=== PATIENT | female | born 1985 | race Caucasian/White ===

== ENCOUNTER 2016-12-23 10:16 | Emergency (ER) | payer MEDICAID ==
--- NOTE | 2016-12-23 10:52 | EDM.PDOC ---
ED HPI Skin/Rash - General Chief Complaint: Skin Complaint Stated Complaint: SPIDER BITE ON CHEST Time Seen by Provider: 12/23/16 10:37 Source: Reports: Patient History Limitations: Reports: No limitations - History of Present Illness INITIAL COMMENTS - FREE TEXT/NARRATIVE: The patient presents with a "spider bite" to her left chest. She noticed this a few days ago. She has no fever or chills. She has no drainage. She did not see the spider but she is concerned it may have happened. Timing: Reports: still present Location, Skin: Reports: chest (Left lateral breast) Quality: Reports: Sharp Severity: mild Associated Symptoms: Reports: no other symptoms Treatments OPERATIONS DISPATCHER: Reports: Other (see below) Other Treatments OPERATIONS DISPATCHER: home remedies - Related Data Allergies Allergy/AdvReac Type Severity Reaction Status Date / Time acetaminophen [From Vicodin] Allergy Airway Verified 12/23/16 10:37 Tightness banana Allergy Airway Verified 12/23/16 10:37 Tightness hydrocodone [From Vicodin] Allergy Airway Verified 12/23/16 10:37 Tightness latex Allergy Hives Verified 12/23/16 10:37 morphine Allergy Hives Verified 12/23/16 10:37 strawberry Allergy Airway Verified 12/23/16 10:37 Tightness Home Meds: Ambulatory Orders Medication Instructions Recorded Confirmed Doxycycline [Vibramycin] 100 mg PO Q12HR #20 cap 12/23/16 Past Medical History Respiratory History: Reports: Asthma Psychiatric History: Reports: ADHD, Bipolar, Learning disability - Past Surgical History Female Surgical History: Reports: section, Tubal ligation Social & Family History - Tobacco Use Smoking Status *Q: Never Smoker - Caffeine Use Caffeine Use: Reports: Coffee, Soda, Tea - Recreational Drug Use Recreational Drug Use: No ED ROS GENERAL - Review of Systems Review Of Systems: See Below Constitutional: Reports: no symptoms HEENT: Reports: No symptoms Respiratory: Reports: no symptoms Cardiovascular: Reports: No symptoms Endocrine: Reports: no symptoms GI/Abdominal: Reports: No symptoms : Reports: no symptoms Musculoskeletal: Reports: no symptoms Skin: Reports: other (cellulitis to the left lateral breast) ED EXAM, SKIN/RASH Exam: See Below Exam Limited By: No limitations General Appearance: alert, no apparent distress Ears: normal external exam Nose: normal inspection Head: atraumatic, normocephalic Respiratory/Chest: no respiratory distress Skin: Other (erythema and mild edema with pain upon palpation to an area to the left lateral breast. No drainage noted.) Course - Vital Signs Last Recorded V/S: Last Vital Signs Temp 98.0 F 12/23/16 10:41 Pulse 53 L 12/23/16 10:41 Resp 20 12/23/16 10:41 BP 115/74 12/23/16 10:41 Pulse Ox 100 12/23/16 10:41 Departure - Departure Time of Disposition: 10:55 Disposition: Home, Self-Care 01 Condition: good Clinical Impression: Cellulitis Qualifiers: Site of cellulitis: trunk Site of cellulitis of trunk: chest wall Qualified Code(s): L03.313 - Cellulitis of chest wall Prescriptions: Doxycycline [Vibramycin] 100 mg PO Q12HR #20 cap Referrals: Gela Rushing PA-C [Physician [employer]] - 1 Week Forms: ED Department Discharge Additional Instructions: Take the doxycycline 2 times per day for 10 days. Put a warm compress on the wound 2 to 3 times per day for 5 days. Please return if you are worse. Follow up with Gela Rushing in 1 week.
== END 2016-12-23 11:05 | disposition home or self-care (01) ==
LOC: JD.ED 10:16
CPT/HCPCS: 99283

== ENCOUNTER 2017-05-10 18:49 | Emergency (ER) | payer MEDICAID ==
[2017-05-10 19:05] VITALS: BP 122/84
--- NOTE | 2017-05-10 19:35 | EDM.PDOC ---
ED HPI GENERAL MEDICAL PROBLEM - General Chief Complaint: Lower Extremity Injury/Pain Stated Complaint: RIGHT ANKLE PAIN Time Seen by Provider: 05/10/17 19:01 Source of Information: Reports: Patient, Family, RN Notes Reviewed, Significant Other History Limitations: Reports: No Limitations - History of Present Illness INITIAL COMMENTS - FREE TEXT/NARRATIVE: The patient states that she developed right ankle pain yesterday. She states that there was no injury. She states that she has had similar symptoms 3 times in the past, but has not previously had a medical evaluation. No recent fever. The patient also reports that she has had low back pain for the past 3 days. The patient states that she has a PCP, but does not recall her name. Right Ankle Pain Score (Numeric/FACES): 7 - Related Data Allergies Allergy/AdvReac Type Severity Reaction Status Date / Time acetaminophen [From Vicodin] Allergy Airway Verified 12/23/16 10:37 Tightness banana Allergy Airway Verified 12/23/16 10:37 Tightness hydrocodone [From Vicodin] Allergy Airway Verified 12/23/16 10:37 Tightness latex Allergy Hives Verified 12/23/16 10:37 morphine Allergy Hives Verified 12/23/16 10:37 strawberry Allergy Airway Verified 12/23/16 10:37 Tightness Home Meds: Home Meds Ibuprofen 2 - 3 tab PO Q8H PRN #50 tablet 05/10/17 [Rx] buPROPion HCl [Wellbutrin Sr] 200 mg PO ACBREAKFAST 05/10/17 [History] Past Medical History Respiratory History: Reports: Asthma Musculoskeletal History: Reports: Fracture (right wrist, right ankle) Psychiatric History: Reports: ADHD, Bipolar, Learning Disability Hematologic History: Reports: Blood Transfusion(s) Dermatologic History: Reports: Eczema - Past Surgical History HEENT Surgical History: Reports: Oral Surgery ([place] teeth extraction) Female Surgical History: Reports: Section (x 2), Tubal Ligation Social & Family History - Family History Family Medical History: Noncontributory - Tobacco Use Smoking Status *Q: Never Smoker Tobacco Use Within Last Twelve Months: Smokeless Tobacco Packs/Tins Daily Comment: Chews one pouch per day - Caffeine Use Caffeine Use: Reports: None - Alcohol Use Alcohol Use History: Yes Alcohol Use Frequency: Socially - Recreational Drug Use Recreational Drug Use: No - Living Situation & Occupation Living situation: Reports: , with Significant Other (Sandra), with Family (Mother, 1 son) Occupation: Unemployed Review of Systems - Review of Systems Review Of Systems: See Below Constitutional: Reports: No Symptoms Eyes: Reports: No Symptoms Ears: Reports: No Symptoms Nose: Reports: No Symptoms Mouth/Throat: Reports: No Symptoms Respiratory: Reports: No Symptoms Cardiovascular: Reports: No Symptoms GI/Abdominal: Reports: No Symptoms Genitourinary: Reports: No Symptoms Musculoskeletal: Reports: No Symptoms Skin: Reports: No Symptoms Neurological: Reports: No Symptoms Psychiatric: Reports: No Symptoms ED EXAM, GENERAL - Physical Exam Exam: See Below Exam Limited By: No Limitations General Appearance: Alert, WD/WN, No Apparent Distress Extremities: Other (Mild swelling to the right lateral malleolus when compared to the left. This area is tender, but the primary tenderness is to the anterior ankle, with less significant tenderness to the medial malleolus and posterior syndesmosis. Pain is elicited in the anterior ankle with active plantar flexion , but none with active dorsiflexion. Pain is also elicited with passive dorsiflexion, more than with passive plantarflexion. Neurovascular status of the right lower extremity is intact) Course - Vital Signs Last Recorded V/S: Last Vital Signs Temp 36.9 C 05/10/17 19:02 Pulse 61 05/10/17 19:02 Resp 18 05/10/17 19:02 BP 122/84 05/10/17 19:02 Pulse Ox 100 05/10/17 19:02 - Orders/Labs/Meds Orders: Active Orders 24 hr Category Date Time Status Ankle Min 3V Rt [CR] Stat Exams 05/10/17 19:21 Taken - Re-Assessments/Exams Free Text/Narrative Re-Assessment/Exam: 05/10/17 20:09 4-view radiographs of the right ankle reviewed. No bony injury identified, such as fracture or dislocation. Formal read per the radiologist pending. 05/10/17 20:10 As the patient denies recent injury to her ankle, and her radiograph are normal , she appears to have some tendinitis to her ankle as the cause of her discomfort, although her examination is quite peculiar. I have ordered an air cast to minimize ankle motion, that I would like her to wear for the next few days, along with [id number] ibuprofen. I will refer her to Dr. Farah, should her symptoms not improve. Departure - Departure Time of Disposition: 20:16 Disposition: Home, Self-Care 01 Condition: Good Clinical Impression: Tendinitis of right ankle - Discharge Information Prescriptions: Ibuprofen 2 - 3 tab PO Q8H PRN #50 tablet PRN Reason: Pain Referrals: Paddy Farah MD [Physician] - Forms: ED Department Discharge Additional Instructions: You were seen in the emergency room for right ankle pain, without injury. Workup in the ER included x-rays of your ankle, which returned as normal. No sign of any broken bones or dislocations. Your ankle pain is MOST LIKELY due to tendinitis, inflammation of the tendons in the ankle. You have been placed into an Aircast. Apply this each morning and take it off at bedtime. Wear this for the next few days. We recommend you take ibuprofen, 2 to 3 tablets, with food, up to every 8 hours , as needed for pain. If your ankle is still sore by 05/14/2017, please follow up with the Orthopedic Surgeon Dr. Farah for further evaluation. If any other problems, please do not hesitate to return to the ER. - My Orders Last 24 Hours: My Active Orders 05/10/17 19:21 Ankle Min 3V Rt [CR] Stat - Assessment/Plan Last 24 Hours: My Active Orders 05/10/17 19:21 Ankle Min 3V Rt [CR] Stat
[2017-05-10] MEDS ORDERED: Ibuprofen 600 MG Tab PO ONE (20:11)
--- NOTE | 2017-05-11 07:17 | CR ---
Right ankle: Four views of the right ankle were obtained. Comparison: No previous ankle exam. Ankle mortise is symmetric. No fracture, dislocation or other bony abnormality is seen. Impression: 1. No acute bony abnormality is identified on right ankle exam. Diagnostic code #1
== END 2017-05-10 20:34 | disposition home or self-care (01) ==
LOC: JD.ED 18:49
DX: M77.9 Enthesopathy, unspecified (principal); J45.909 Unspecified asthma, uncomplicated; F90.9 Attention-deficit hyperactivity disorder, unspecified type; F31.9 Bipolar disorder, unspecified; Z98.51 Tubal ligation status; Z98.890 Other specified postprocedural states; Z88.5 Allergy status to narcotic agent; Z91.040 Latex allergy status; Z91.018 Allergy to other foods; X58.XXXA Exposure to other specified factors, initial encounter
CPT/HCPCS: 73610; 99283; A9270; 99282

== ENCOUNTER 2017-09-29 18:20 | Emergency (ER) | payer MEDICAID ==
[2017-09-29 18:37] VITALS: BP 121/92
[2017-09-29] MEDS ORDERED: Ketorolac 30 MG/ML SDV IM ONE (18:59)
--- NOTE | 2017-09-29 19:03 | EDM.PDOC ---
ED HPI GENERAL MEDICAL PROBLEM - General Chief Complaint: Upper Extremity Injury/Pain Stated Complaint: HURT L ARM Time Seen by Provider: 09/29/17 18:52 Source of Information: Reports: Patient History Limitations: Reports: No Limitations - History of Present Illness INITIAL COMMENTS - FREE TEXT/NARRATIVE: Patient is a 32-year-old female presents ED complaining of left elbow and wrist pain. Patient states she fell approximately 6:00 this morning when she experienced a hypoglycemic event. Patient states she fell forward landing on the affected arm. The floor was concrete with towel covering it. Patient has not been utilizing any ibuprofen or Tylenol for the pain. Also she's not been place any ice to the affected area. States she is hand is cold to touch with some intermittent numbness and tingling present. Pain is worsen with flexion and extension of the elbow and the wrist. No bony abnormalities present. She does have a history of fraction left elbow 2 when she was 8 years old after a fall. She is bipolar and takes Wellbutrin SR 200 mg every day. In addition she has a history of asthma ADHD and learning disability. Patient does not smoke. She chews tobacco. Alcohol use rarely. No recreational drugs. Left Arm Pain Score (Numeric/FACES): 10 - Related Data Allergies Allergy/AdvReac Type Severity Reaction Status Date / Time acetaminophen [From Vicodin] Allergy Airway Verified 09/29/17 18:33 Tightness banana Allergy Airway Verified 09/29/17 18:33 Tightness hydrocodone [From Vicodin] Allergy Airway Verified 09/29/17 18:33 Tightness latex Allergy Hives Verified 09/29/17 18:33 morphine Allergy Hives Verified 09/29/17 18:33 strawberry Allergy Airway Verified 09/29/17 18:33 Tightness Home Meds: Home Meds buPROPion HCl [Wellbutrin Sr] 200 mg PO ACBREAKFAST 05/10/17 [History] Past Medical History Respiratory History: Reports: Asthma Musculoskeletal History: Reports: Fracture Other Musculoskeletal History: right wrist right ankle Neurological History: Reports: Migraines Psychiatric History: Reports: ADHD, Bipolar, Learning Disability Hematologic History: Reports: Blood Transfusion(s) Dermatologic History: Reports: Eczema - Past Surgical History HEENT Surgical History: Reports: Oral Surgery Female Surgical History: Reports: Section, Tubal Ligation Social & Family History - Family History Family Medical History: Noncontributory - Tobacco Use Smoking Status *Q: Never Smoker - Caffeine Use Caffeine Use: Reports: None - Recreational Drug Use Recreational Drug Use: No - Living Situation & Occupation Living situation: Reports: , with Significant Other (Fianc), with Family (Mother, 1 son) Occupation: Unemployed Review of Systems - Review of Systems Review Of Systems: ROS reveals no pertinent complaints other than HPI. ED EXAM, GENERAL - Physical Exam Exam: See Below Exam Limited By: No Limitations General Appearance: Alert, WD/WN, Mild Distress Ears: Hearing Grossly Normal Nose: Normal Inspection Throat/Mouth: Normal Voice, No Airway Compromise. No: Normal Teeth Head: Atraumatic, Normocephalic Neck: Normal Inspection, Supple, Non-Tender, Full Range of Motion Respiratory/Chest: No Respiratory Distress, No Accessory Muscle Use Cardiovascular: Normal Peripheral Pulses, Regular Rate, Rhythm Peripheral Pulses: 2+: Radial (L), Radial (R) Extremities: Normal Inspection, Normal Capillary Refill, Other (Upon palpation she has pain to the olecranon and also anterior wrist. No scaphoid tenderness. Increasing pain with flexion extension of the elbow and wrist. Patient has full extension and flexion with minimal limitation with range of motion noted. No sensory/motor deficits distally. No bruising, swelling, wounds present. No pain noted to the upper arm, shoulder, clavicle.) Neurological: Alert, Oriented, CN II-XII Intact, Normal Cognition, No Motor/ Sensory Deficits Psychiatric: Normal Affect, Normal Mood Skin Exam: Warm, Dry, Intact, Normal Color Course - Vital Signs Last Recorded V/S: Last Vital Signs Temp 98.1 F 09/29/17 18:34 Pulse 72 09/29/17 18:34 Resp 14 09/29/17 18:34 BP 121/92 H 09/29/17 18:34 Pulse Ox 97 09/29/17 18:34 - Orders/Labs/Meds Orders: Active Orders 24 hr Category Date Time Status Elbow Min 3V Lt [CR] Stat Exams 09/29/17 19:00 Taken Wrist Comp Min 3V Lt [CR] Stat Exams 09/29/17 19:00 Taken DME for Discharge [COMM] Stat Oth 09/29/17 20:33 Ordered Meds: Medications Discontinued Medications Generic Name Dose Route Start Last Admin Trade Name Freq PRN Reason Stop Dose Admin Ketorolac Tromethamine 30 mg 09/29/17 18:59 09/29/17 19:10 Toradol IM 09/29/17 19:00 30 mg ONETIME ONE Administration - Re-Assessments/Exams Free Text/Narrative Re-Assessment/Exam: For pain ordered Toradol 30 mg IM. X-ray of the left elbow and wrist will be obtained. X-ray of the wrist and elbow reviewed with Dr. Segovia no obvious bony abnormalities noted. Final interpretation pending. She results of x-ray with patient. She is having pain with attempting to hold the arm up thus will order a arm sling to be discharged home with the patient. Discharge instructions as documented. Departure - Departure Time of Disposition: 20:35 Disposition: Home, Self-Care 01 Condition: Good Clinical Impression: Elbow pain, left Contusion of arm, left, multiple sites Qualifiers: Encounter type: initial encounter Qualified Code(s): S40.022A - Contusion of left upper arm, initial encounter Left wrist sprain Qualifiers: Encounter type: initial encounter Qualified Code(s): S63.502A - Unspecified sprain of left wrist, initial encounter - Discharge Information Referrals: PCP,Unknown [Ordering Only Provider] - Forms: ED Department Discharge Additional Instructions: As discussed x-rays of the wrist and elbow do not reveal any acute bony abnormalities. Final interpretation is pending. If there is a fracture present you'll be notified. Wear the sling as instructed when up and about on your feet. When at rest or sleeping remove the sling. Apply ice to affected area 3 times a day, 30 minutes in duration, do not apply ice directly on the skin. Take Aleve 1-2 tabs twice a day as needed for pain. Refrain from any activities that cause worsening pain. Follow-up with your primary care provider this coming week for reevaluation if needed. Return to the ED for any new or worsening symptoms. - My Orders Last 24 Hours: My Active Orders 09/29/17 19:00 Elbow Min 3V Lt [CR] Stat Wrist Comp Min 3V Lt [CR] Stat 09/29/17 20:33 DME for Discharge [COMM] Stat - Assessment/Plan Last 24 Hours: My Active Orders 09/29/17 19:00 Elbow Min 3V Lt [CR] Stat Wrist Comp Min 3V Lt [CR] Stat 09/29/17 20:33 DME for Discharge [COMM] Stat
--- NOTE | 2017-10-01 07:53 | CR ---
Left wrist: Four views of the left wrist were obtained. Comparison: No prior study. Joint spaces are maintained. No acute fracture, dislocation or other bony abnormality is identified. Impression: 1. No abnormality is identified on the left wrist exam. Diagnostic code #1
--- NOTE | 2017-10-01 07:53 | CR ---
Left elbow: Four views of the left elbow were obtained. Comparison: No prior elbow study. Joint spaces are maintained. No joint effusion is seen. Slight cortical lucency is seen within the proximal ulna on one of the oblique views. This is not seen on other views and is at the base of the coronoid process. Uncertain if this represents a poorly seen fracture or is normal variant. No additional abnormality is seen. Impression: 1. Equivocal abnormality at the base of the coronoid process is seen only on one view. Not certain if this is a real finding. Follow-up study in 10-14 days could be considered to further evaluate. 2. No additional abnormality is identified on left elbow study. Diagnostic code #3
== END 2017-09-29 20:45 | disposition home or self-care (01) ==
LOC: JD.ED 18:20
DX: S63.502A Unspecified sprain of left wrist, initial encounter (principal); S40.022A Contusion of left upper arm, initial encounter; Z88.5 Allergy status to narcotic agent; Z91.040 Latex allergy status; Z79.899 Other long term (current) drug therapy; W19.XXXA Unspecified fall, initial encounter
CPT/HCPCS: 73080; 73110; 99283; J1885

== ENCOUNTER 2017-11-07 19:14 | Emergency (ER) | payer MEDICAID ==
[2017-11-07 19:41] VITALS: BP 123/86
--- NOTE | 2017-11-07 20:13 | EDM.PDOC ---
ED HPI GENERAL MEDICAL PROBLEM - General Chief Complaint: Respiratory Problem Stated Complaint: COUGH AND EAR PAIN LOSS OF VOICE Time Seen by Provider: 11/07/17 19:59 Source of Information: Reports: Patient History Limitations: Reports: No Limitations - History of Present Illness INITIAL COMMENTS - FREE TEXT/NARRATIVE: 32-year-old female presents for evaluation and treatment of fluids like symptoms. Patient reports she has been out for the last 4 days. Current symptoms include sore throat, cough, vomiting, horse voice, malaise, headaches, bodyaches, chills and left ear discomfort. Patient reports that she vomited twice today. No diarrhea. She states she's felt warm but has not taken her temperature. No influenza vaccine this season. 5-year-old daughter is also present in the ER with similar symptoms. her symptoms of the liver with a 1 day. Duration: Day(s): (4) - Related Data Allergies Allergy/AdvReac Type Severity Reaction Status Date / Time acetaminophen [From Vicodin] Allergy Airway Verified 11/07/17 19:43 Tightness banana Allergy Airway Verified 11/07/17 19:43 Tightness hydrocodone [From Vicodin] Allergy Airway Verified 11/07/17 19:43 Tightness latex Allergy Hives Verified 11/07/17 19:43 morphine Allergy Hives Verified 11/07/17 19:43 strawberry Allergy Airway Verified 11/07/17 19:43 Tightness Home Meds: Home Meds buPROPion HCl [Wellbutrin Sr] 200 mg PO ACBREAKFAST 05/10/17 [History] Ibuprofen 600 mg PO Q6HR PRN #20 tablet 11/07/17 [Rx] Past Medical History Respiratory History: Reports: Asthma Musculoskeletal History: Reports: Fracture Other Musculoskeletal History: right wrist right ankle Neurological History: Reports: Migraines Psychiatric History: Reports: ADHD, Bipolar, Learning Disability Hematologic History: Reports: Blood Transfusion(s) Dermatologic History: Reports: Eczema - Past Surgical History HEENT Surgical History: Reports: Oral Surgery Female Surgical History: Reports: Section, Tubal Ligation Social & Family History - Family History Family Medical History: Noncontributory - Tobacco Use Smoking Status *Q: Never Smoker - Caffeine Use Caffeine Use: Reports: None - Recreational Drug Use Recreational Drug Use: No - Living Situation & Occupation Living situation: Reports: , with Significant Other (Fianc), with Family (Mother, 1 son) Occupation: Unemployed ED ROS GENERAL - Review of Systems Review Of Systems: See Below Constitutional: Reports: Fever, Chills, Malaise, Fatigue HEENT: Reports: Ear Pain (left), Throat Pain Respiratory: Reports: Cough GI/Abdominal: Reports: Abdominal Pain, Nausea, Vomiting (x2). Denies: Diarrhea Neurological: Reports: Headache ED EXAM, GENERAL - Physical Exam Exam: See Below Exam Limited By: No Limitations General Appearance: Alert, WD/WN, Mild Distress, Thin Eye Exam: Bilateral Eye: Normal Inspection Ears: Normal External Exam, Normal Canal, Hearing Grossly Normal, Normal TMs Nose: Normal Inspection Throat/Mouth: Normal Inspection, Normal Lips, Normal Voice, No Airway Compromise Neck: Normal Inspection Respiratory/Chest: No Respiratory Distress, Lungs Clear, Normal Breath Sounds Cardiovascular: Normal Peripheral Pulses, Regular Rate, Rhythm, No Murmur Neurological: Alert, Oriented, Normal Cognition Psychiatric: Normal Affect, Normal Mood Skin Exam: Warm, Dry, Normal Color Course - Vital Signs Last Recorded V/S: Last Vital Signs Temp 36.9 C 11/07/17 19:35 Pulse 86 11/07/17 19:35 Resp 20 11/07/17 19:35 BP 123/86 11/07/17 19:35 Pulse Ox 98 11/07/17 19:35 - Orders/Labs/Meds Orders: Active Orders 24 hr Category Date Time Status CULTURE STREP A CONFIRMATION [RM] Stat Lab 11/07/17 19:20 Results STREP SCRN A RAPID W CULT CONF [RM] Stat Lab 11/07/17 19:20 Received Meds: Medications Discontinued Medications Generic Name Dose Route Start Last Admin Trade Name Lupe PRN Reason Stop Dose Admin Ketorolac Tromethamine 60 mg 11/07/17 20:49 11/07/17 20:57 Toradol IM 11/07/17 20:50 60 mg ONETIME ONE Administration - Re-Assessments/Exams Free Text/Narrative Re-Assessment/Exam: 11/07/17 20:50 Patient's rapid strep returned negative Rapid flu returned negative. Patient's daughters is also being seen. Her influenza returned positive. I feel that this patient has influenza. I will treat her as such. Unfortunately, she is out of window for Tamiflu. Recommend symptomatic treatment. She is requesting something for pain. I will give her some Toradol. Plan to discharge shortly. Departure - Departure Time of Disposition: 21:02 Disposition: Home, Self-Care 01 Condition: Fair Clinical Impression: Influenza - Discharge Information Prescriptions: Ibuprofen 600 mg PO Q6HR PRN #20 tablet PRN Reason: Pain Instructions: Influenza, Adult, [id number] Referrals: PCP,Not In Area [Primary Care Provider] - Forms: ED Department Discharge Additional Instructions: You likely have influenza. You tested negative for influenza tonight. your Symptoms, however, are consistent with influenza and your daughter was positive. Unfortunately, you are out of window to receive any beneficial effects from tamiflu. Bacterial symptoms last for several weeks. The first week is also in the worst. Make sure you are drinking plenty of fluids. Ibuprofen 600 mg every 6 hours for pain and headache relief. May also take Tylenol, up to 1000 mg, every 6 hours as well. Do not take more than 3200 mg of ibuprofen from all sources in one day. Do not take more than 4 g of Tylenol from all sources in 1 day. Good hand hygiene. Follow up with family medicine if your symptoms are not much improved within 2 weeks. Please return to ER if your symptoms change or worsen. - My Orders Last 24 Hours: My Active Orders 11/07/17 19:20 CULTURE STREP A CONFIRMATION [RM] Stat STREP SCRN A RAPID W CULT CONF [] Stat - Assessment/Plan Last 24 Hours: My Active Orders 11/07/17 19:20 CULTURE STREP A CONFIRMATION [RM] Stat STREP SCRN A RAPID W CULT CONF [RM] Stat
[2017-11-07] MEDS ORDERED: Ketorolac 60 MG/2 ML SDV IM ONE (20:49)
== END 2017-11-07 21:15 | disposition home or self-care (01) ==
LOC: JD.ED 19:14
DX: J11.1 Influenza due to unidentified influenza virus with other respiratory manifestations (principal); Z88.6 Allergy status to analgesic agent; Z88.5 Allergy status to narcotic agent; Z91.040 Latex allergy status
CPT/HCPCS: 87081; 87430; 87804; 96372; 99283; J1885